=== PATIENT | female | born 1975 | race African-American/Black ===

== ENCOUNTER 2019-11-05 21:38 | Emergency (ER) | payer OTHER ==
[~2019-11-05] VITALS: Ht 149.9 cm; Wt 104.8 kg
[2019-11-05] MEDS ORDERED: DEPAKOTE250 MG PO (21:48)
[2019-11-05] MEDS ORDERED: DESYREL150 MG PO (21:49)
[2019-11-05] MEDS ORDERED: ABILIFY 5 MG TAB5 M1 PO (21:49)
[2019-11-06] MEDS ORDERED: PROMETH-CODEIN 65 ML PO (00:57)
[2019-11-06 01:12] VITALS: BP 134/61
== END 2019-11-06 01:10 | disposition home or self-care (01) ==
LOC: ER 21:38
DX: B34.9 Viral infection, unspecified (principal); F14.90 Cocaine use, unspecified, uncomplicated; I10 Essential (primary) hypertension; Z88.0 Allergy status to penicillin; Z91.013 Allergy to seafood; Z79.899 Other long term (current) drug therapy; Z98.890 Other specified postprocedural states